=== PATIENT | male | born 1970 | race African-American/Black ===

== ENCOUNTER 2017-08-19 07:24 | Day surgery (SDC) | payer BC ==
[~2017-08-19] VITALS: Ht 180.3 cm; Wt 110.0 kg
[2017-08-19] VITALS (11 sets, daily range): BP systolic 147–169; BP diastolic 71–95; Ht 180.3 cm; Wt 110.0 kg
--- NOTE | ~2017-08-19 | HP ---
PATIENT: MIC CORRIGAN MEDICAL RECORD: [id number] ACCOUNT: [id number] LOCATION:[facility] : 72 ADMISSION DATE: 08/19/17 HISTORY AND PHYSICAL EXAMINATION HISTORY OF PRESENT ILLNESS: Mr. 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 He is being admitted for excision of thyroglossal duct cyst. PAST MEDICAL HISTORY: Includes reflux and hypertension. PAST SURGICAL HISTORY: None. CURRENT MEDICATIONS: Ziac, fenofibrate, Prilosec, bisoprolol. ALLERGIES: No known drug allergies. PHYSICAL EXAMINATION: GENERAL: He is healthy-appearing, developmentally normal. FACE: Normal, symmetric. No lesions. EYES: Sclerae and conjunctivae are normal. EARS: Canals and TMs are normal. NOSE: No mass, polyps or drainage. ORAL CAVITY AND OROPHARYNX: Palate is normal. No trismus. NECK: He has a mass between the thyroid cartilage and the hyoid bone 2 cm in size just barely to the right of midline. CHEST: Clear. CARDIOVASCULAR: Regular rate and rhythm. No murmur. EXTREMITIES: Normal. IMPRESSION: Midline neck mass. PLAN: Excision of thyroglossal duct cyst. TRANSINT:[id number] Voice Confirmation ID: [id number] DOCUMENT ID: [id number] NOÉ LUI MD at 1145 CC: [id number] DICTATION DATE: 08/18/17 0900 COMPLIANCE MONITOR: 08/18/17 0912 REG [facility] [address] [place] [address]
--- NOTE | ~2017-08-19 | OP ---
PATIENT NAME: MIC CORRIGAN MEDICAL RECORD: [id number] :72 LOCATION:[id number] ADMISSION DATE: SURGEON: NOÉ LUI MD DATE OF OPERATION: 08/19/2017 PREOPERATIVE DIAGNOSIS: Thyroglossal duct cyst. POSTOPERATIVE DIAGNOSIS: Thyroglossal duct cyst. PROCEDURE: Excision of thyroglossal duct cyst. SURGEON: Noé Lui MD ANESTHESIA: General orotracheal. BLOOD LOSS: 5 cc. SPECIMENS: Thyroglossal duct cyst with a portion of the hyoid bone and the duct. DRAINS: A single NAYANA through separate stab incision. COMPLICATIONS: None. DISPOSITION: Recovery stable. DESCRIPTION OF PROCEDURE: He was brought to the operating room and placed in supine position, sedated and intubated by anesthesia. Head was positioned. The neck was prepped and draped in usual sterile fashion. A skin crease over the cyst was injected with less than 1 cc of 1% lidocaine with 1:100,000 epinephrine with a long 27-gauge needle. A horizontal incision was made with a 15 blade. This was taken down through the platysma with spatula tip cautery on a setting of 12. With the cyst exposed, it was a little bit right of midline, but it was dissected out and then a towel attached to a thyroglossal duct cyst inferiorly and superiorly, which was on the left side of the thyroid cartilage. First it was tracked inferiorly to about the level of the cricothyroid membrane and it was dissected down there, isolated from surrounding tissue, and then tied off with 2-0 silk tie and then cut loose. Then, this was retracted inferiorly, dissected superiorly to the inferior portion of the hyoid bone just to the left of midline. The hyoid bone was grasped with Luciana clamp and the hyoid was isolated along its edge with a spatula tip cautery and bone cutters were used to snip the hyoid bone on either side of the attachment of the cyst. This was then retracted inferiorly and retracting, it ruptured the thyroglossal duct cyst, which is about 3 cm in diameter. Purulence was extruded. Cultures were taken of that and sent and the wound was copiously irrigated and suctioned. There was bleeding from the right side portion of the hyoid bone where it cuts, suction and bipolar cautery used to stop that bleeding. With the specimen out, it was sent for path. The wound was carefully irrigated repeatedly and inspected. It was clean and dry. The cyst was removed in its entirety. A NAYANA drain was placed through a separate stab incision inferior to the wound and the wound was closed with interrupted 3-0 Vicryl deep and then the skin was closed with running subcuticular 5-0 Prolene. Steri-Strips and Mastisol were applied. He was awakened, extubated, and transported to recovery in good condition. No complications. OPERATIVE REPORT [id number] MIC CORRIGAN:[id number] Voice Confirmation ID: [id number] DOCUMENT ID: [id number] NOÉ LUI MD at 0835 CC: [id number] DICTATION DATE: 08/19/17 1527 EVP GENERAL COUNSEL: 08/19/17 1545 REG [facility] [address] [place] [address]
[~2017-08-19 07:24] MED LIST: TRICOR145 MG PO; ZIAC 5-6.25 MG1 TAB PO
[2017-08-19 07:52] LABS: HEMATOCRIT 41.7 % (42.0-54.0); HEMOGLOBIN 14.6 g/dL (13.5-17.5); MCV 94.1 fL (80.0-100.0); MEAN PLATELET VOLUME 10.8 fL (7.4-10.4); RBC 4.43 10x6/uL (4.20-6.10); RDW 12.9 % (11.5-14.5); WBC 5.9 10x3/uL (4.8-10.8)
[2017-08-19 08:01] LABS: CALC OSMOLALITY 281 mosm/kg (275-300); CALCIUM 8.9 mg/dL (8.5-10.1); CARBON DIOXIDE 30.1 mmol/L (21.0-32.0); CHLORIDE - SERUM 105 mmol/L (98-107); CREATININE - SERUM 0.9 mg/dL (0.6-1.3); GLUCOSE 94 mg/dL (74-106); POTASSIUM - SERUM 3.9 mmol/L (3.5-5.1); SODIUM 142 mmol/L (136-145); UREA NITROGEN 10 mg/dL (7-18); eGFR NON AFRICAN AMERICAN > 90 mL/min (90-120)
[2017-08-20 04:00] VITALS: BP 146/86
[2017-08-20 09:19] VITALS: BP 137/79
== END 2017-08-20 11:14 | disposition home or self-care (01) ==
LOC: D.OPS 07:24 → D.MS 07:24 → D.OPS 09:15 → D.PAN 10:45 → D.OPS 12:40 → D.MS 13:48 → D.OPS 08-20 11:14
PROVIDERS: Anesthesiology
DX: Q89.2 Congenital malformations of other endocrine glands (principal); K21.9 Gastro-esophageal reflux disease without esophagitis; I10 Essential (primary) hypertension; Z79.899 Other long term (current) drug therapy; Z01.812 Encounter for preprocedural laboratory examination